=== PATIENT | male | born 1990 | race Caucasian/White ===

== ENCOUNTER 2022-09-11 18:58 | Emergency (ER) | payer OTHER ==
[~2022-09-11] VITALS: Ht 182.9 cm; Wt 133.8 kg
[~2022-09-11 18:58] MED LIST: LORA10ER PO; NAPPHEOPSO OD
[2022-09-11 19:14] VITALS: BP 161/107
== END 2022-09-11 19:44 | disposition home or self-care (01) ==
LOC: ER 18:58
DX: H72.91 Unspecified perforation of tympanic membrane, right ear (principal); Z88.8 Allergy status to other drugs, medicaments and biological substances; Z79.899 Other long term (current) drug therapy
CPT/HCPCS: A9270